=== PATIENT | female | born 1970 | race African-American/Black ===

== ENCOUNTER 2018-08-06 05:56 | Emergency (ER) | payer SELFPAY ==
[~2018-08-06] VITALS: Ht 157.5 cm; Wt 59.0 kg
[~2018-08-06 05:56] MED LIST: ACETAMINOPHEN-1 EAC1 ORAL; AMOXICILLIN500 MG ORAL; ANBESOL9 GM MM; BENADRYL25 MG ORAL; CHLORHEXIDINE473 ML MM; CLINDAMYCIN HC300 MG ORAL; CYCLOBENZAPRINE10 MG ORAL; HYDROCODON-ACE1 EA15 ORAL; NKM; NORCO 5-325 TA1 EACH ORAL; NORCO 7.5-3251 EACH ORAL; PERCOCET 5-3251 EACH ORAL; PREDNISONE20 MG ORAL; ROBAXIN500 MG PO
[2018-08-06] MEDS ORDERED: TYLENOL EXTRA500 MG ORAL (06:05)
--- NOTE | 2018-08-06 06:07 | NUR ---
ED Nurse Note: Received report. Pt from home, ambulatory, c/o flank and groin pain 04/19. Pt is scheduled to have kidney stone removal in [place] 08/11/18 but pain was so severe she came to ED today 08/06/18. monitoring manager applied, VSS and pt stable. Will carry out ERMD's orders and continue to monitor.
[2018-08-06 06:15] VITALS: BP 111/79
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
[2018-08-06] MEDS ORDERED: HYDROcodone/Acetamin 10/325 tab ORAL ONE (06:30)
[2018-08-06 06:40] VITALS: BP 109/81
== END 2018-08-06 06:40 | disposition home or self-care (01) ==
LOC: EDBD 05:56 → MERGE 06:35 → EMR 06:35
DX: M54.5 Low back pain (principal); Z87.442 Personal history of urinary calculi; Z88.5 Allergy status to narcotic agent; Z88.0 Allergy status to penicillin; Z88.8 Allergy status to other drugs, medicaments and biological substances
CPT/HCPCS: 99282

== ENCOUNTER 2019-03-19 23:40 | Emergency (ER) | payer OTHER ==
[~2019-03-19] VITALS: Ht 165.1 cm; Wt 68.5 kg
[~2019-03-19 23:40] MED LIST changes: +TYLENOL EXTRA500 MG ORAL
[2019-03-19 23:55] VITALS: BP 155/88
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
[2019-03-20] MEDS ORDERED: Fluorescein Strips ONE
[2019-03-20] MEDS ORDERED: Fluorescein Strips RIGHT EYE ONE
[2019-03-20] MEDS ORDERED: HYDROmorphone 1mg/ml Carpuject IM ONE (00:15)
[2019-03-20 00:30] VITALS: BP 142/80
[2019-03-20] MEDS ORDERED: DiphenhydrAMINE 50mg/ml Inj IM ONE (00:30)
[2019-03-20] MEDS ORDERED: HYDROCODON-ACE1 EA15 ORAL (00:43)
[2019-03-20] MEDS ORDERED: POLYTRIM OP SOL10 ML OPHTHALM (00:43)
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
== END 2019-03-20 00:30 | disposition home or self-care (01) ==
LOC: EMR 23:59
DX: S05.01XA Injury of conjunctiva and corneal abrasion without foreign body, right eye, initial encounter (principal); Z88.6 Allergy status to analgesic agent; Z88.8 Allergy status to other drugs, medicaments and biological substances; Z88.0 Allergy status to penicillin; G89.29 Other chronic pain; M54.9 Dorsalgia, unspecified; K08.89 Other specified disorders of teeth and supporting structures; V43.52XA Car driver injured in collision with other type car in traffic accident, initial encounter; Y92.410 Unspecified street and highway as the place of occurrence of the external cause
CPT/HCPCS: 96372; J1170; J1200; Z7502; 99283

== ENCOUNTER 2019-03-21 02:03 | Emergency (ER) | payer OTHER ==
[~2019-03-21] VITALS: Ht 165.1 cm; Wt 68.0 kg
[~2019-03-21 02:03] MED LIST changes: +POLYTRIM OP SOL10 ML OPHTHALM
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
[2019-03-21 02:16] VITALS: BP 187/121
[2019-03-21] MEDS ORDERED: Tetracaine 0.5% Opth 4ml Soln RIGHT EYE ONE (02:30)
[2019-03-21] MEDS ORDERED: Hydromorphone 0.5mg/0.5ml inj IM ONE (02:30)
[2019-03-21] MEDS ORDERED: DiphenhydrAMINE 50mg/ml Inj IM ONE (02:30)
[2019-03-21] MEDS ORDERED: Fluorescein Strips RIGHT EYE ONE (02:30)
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
[2019-03-21 02:48] VITALS: BP 155/101
--- NOTE | 2019-03-21 02:48 | NUR ---
ER DISCHARGE NOTE: Patient is cleared to be discharged per ERMD, pt is aox4, on room air, with stable vital signs. pt was given dc and prescription instructions, pt was able to verbalize understanding, pt id band removed. pt is able to ambulate with steady gait. pt took all belongings.
== END 2019-03-21 02:48 | disposition home or self-care (01) ==
LOC: EMR 02:23
DX: S05.01XD Injury of conjunctiva and corneal abrasion without foreign body, right eye, subsequent encounter (principal); Z88.6 Allergy status to analgesic agent; Z88.8 Allergy status to other drugs, medicaments and biological substances; Z88.0 Allergy status to penicillin; W22.8XXD Striking against or struck by other objects, subsequent encounter
CPT/HCPCS: 96372; J1170; J1200; Z7502; 99283

== ENCOUNTER 2019-03-30 16:52 | Emergency (ER) | payer OTHER ==
[~2019-03-30] VITALS: Ht 160 cm; Wt 63.5 kg
[2019-03-30 17:12] VITALS: BP 161/104
[2019-03-30] MEDS ORDERED: Tetracaine 0.5% Opth 4ml Soln LEFT EYE ONE (17:15)
[2019-03-30] MEDS ORDERED: Fluorescein Strips BOTH EYES ONE (17:15)
--- NOTE | 2019-03-30 17:19 | NUR ---
ED Nurse Note: ermd at bedside pt walked in from home c/o rt eye pain
[2019-03-30] MEDS ORDERED: ERYTHROMYCIN3.5 GM RIGHT EYE (17:24)
--- NOTE | 2019-03-30 17:24 | Emergency Room Report ---
History of Present Illness General Chief Complaint: Eye Problems Source: Patient Present Illness HPI 45-year-old female presents with corneal abrasion to the right eye, patient endorses sharp pain foreign body sensation x1 day patient no aggravating relieving factors, severity is mild, and symptoms are intermittent. Allergies: Coded Allergies: CODEINE (Verified Allergy, Unknown, 03/30/19) IBUPROFEN (Verified Allergy, Unknown, 08/07/18) KETOROLAC (Verified Allergy, Unknown, 08/07/18) PENICILLINS (Verified Allergy, Unknown, 08/07/18) Patient History Past Medical History: see triage record Reviewed Nursing Documentation: PMH: Agreed; PSxH: Agreed Nursing Documentation-PMH Past Medical History: No Stated History Review of Systems All Other Systems: negative except mentioned in HPI Physical Exam Vital Signs Date Time Temp Pulse Resp B/P (MAP) Pulse Ox O2 Delivery O2 Flow Rate FiO2 03/30/19 16:58 98.2 117 18 161/104 (123) 96 Room Air General Appearance: well appearing, no apparent distress Head: normocephalic, atraumatic Eyes: right eye fluoroscene uptake; bilateral eye PERRL, bilateral eye EOMI, bilateral eye visual acuity - 20/100 ENT: hearing grossly normal, normal voice Neck: full range of motion, supple Respiratory: no respiratory distress, speaking full sentences Neurologic: alert, normal gait Psychiatric: mood/affect normal Skin: no rash Medical Decision Making Diagnostic Impression: Primary Impression: Corneal abrasion Qualified Codes: S05.01XD - Injury of conjunctiva and corneal abrasion without foreign body, right eye, subsequent encounter ER Course 45-year-old female presents with recurrent corneal abrasion, requesting Dilaudid concern for pain seeking behavior patient's right eye is injected, same corneal abrasion as last time, patient followed up with ophthalmology who cleared her. Spoke with patient counseled her that Dilaudid is not an indication for her pain. Patient understands Patient states she will follow-up with ophthalmology, patient has no pain with eye movement no changes in vision, patient with an old corneal abrasion that is still healing. Last Vital Signs Date Time Temp Pulse Resp B/P (MAP) Pulse Ox O2 Delivery O2 Flow Rate FiO2 03/30/19 17:12 98.2 18 161/104 96 Room Air 03/30/19 16:58 117 Disposition: HOME, SELF-CARE Condition: Stable Scripts Erythromycin Base (ERYTHROMYCIN*) 3.5 Gm Oint...g. 1 APPLIC RIGHT EYE QID for 7 Days, #3.5 GM 0 Refills Prov: Jaime Rivera MD 03/30/19 Referrals: [facility] Patient Instructions: Corneal Abrasion, [id number] Additional Instructions: The patient was provided with discharge instructions, notified to follow-up with a primary care doctor and or specialist in the next 24-48 hours, and to return to the ED if they have worsening of their symptoms. Please note that this report is being documented using DRAGON technology. This can lead to erroneous entry secondary to incorrect interpretation by the dictating instrument. Jaime Rivera MD Mar 30, 2019 17:24
--- NOTE | 2019-03-30 17:24 | NUR ---
ED Nurse Note: visual aquity done ermd informed of results.
[2019-03-30] MEDS ORDERED: DiphenhydrAMINE 50mg/ml Inj IM ONE (17:30)
[2019-03-30] MEDS ORDERED: Hydromorphone 0.5mg/0.5ml inj IVP ONE (17:30)
[2019-03-30] MEDS ORDERED: Hydromorphone 0.5mg/0.5ml inj IM ONE (17:30)
[2019-03-30 17:50] VITALS: BP 148/90
--- NOTE | 2019-03-30 17:52 | NUR ---
ED Nurse Note: pt medicated no reactions noted .
--- NOTE | 2019-03-30 17:56 | NUR ---
ED Nurse Note: pt walking home with mother.
--- NOTE | 2019-03-30 17:56 | NUR ---
ED Nurse Note: Pt cleared by health care Provider for discharge. DC instructions/prescription was given and explained to pt and verbalized understanding of teachings. All medical deviecs such as ID band removed. Pt is AAO x4, ambulatory and left with all personal belongings.
== END 2019-03-30 17:57 | disposition home or self-care (01) ==
LOC: EMR 17:20
DX: S05.01XA Injury of conjunctiva and corneal abrasion without foreign body, right eye, initial encounter (principal); Z88.6 Allergy status to analgesic agent; Z88.0 Allergy status to penicillin; X58.XXXA Exposure to other specified factors, initial encounter; Y92.9 Unspecified place or not applicable
CPT/HCPCS: 96372; 96374; J1170; J1200; Z7502; 99284

== ENCOUNTER 2019-07-23 05:43 | Emergency (ER) | payer OTHER ==
[~2019-07-23] VITALS: Ht 157.5 cm; Wt 56.7 kg
[~2019-07-23 05:43] MED LIST changes: +ERYTHROMYCIN3.5 GM RIGHT EYE
[2019-07-23 06:00] VITALS: BP 148/98
--- NOTE | 2019-07-23 06:00 | NUR ---
ED Nurse Note: Pt walked into ED from home for c/o cough x 4 days. Pt is in no cardiac or respiratory distress. Pt is aaox4, ambulatory with steady gait. Will continue to monitor.
[2019-07-23] MEDS ORDERED: PROMETHAZINE-C118 M1 ORAL ×2 (06:13→06:14)
[2019-07-23] MEDS ORDERED: PREDNISONE20 MG ORAL (06:14)
[2019-07-23] MEDS ORDERED: ALBUTEROL SULF8.5 GM INH (06:14)
[2019-07-23] MEDS ORDERED: Albuterol ud Inhalation HHN ONE (06:15)
[2019-07-23] MEDS ORDERED: Acetaminophen 500mg (ES) tab ORAL ONE (06:15)
--- NOTE | 2019-07-23 06:15 | Emergency Room Report ---
History of Present Illness General Chief Complaint: Upper Respiratory Illness Source: Patient Present Illness HPI This is a 45-year-old female with history of chronic pain patient presents with complaint of cough and congestion. She says she went to the dentist 4 days ago. The print shop assistant was sick and she simply caught it from her. She has been coughing nonstop. [id number] medicine not helping. Also complained of headache and body pain. [place] chills but no fever. Worse with inspiration. Better with rest. Denies any other complaint. Is nonproductive in nature. Pain is 10/10. Allergies: Coded Allergies: CODEINE (Verified Allergy, Unknown, 03/30/19) IBUPROFEN (Verified Allergy, Unknown, 08/07/18) KETOROLAC (Verified Allergy, Unknown, 08/07/18) PENICILLINS (Verified Allergy, Unknown, 08/07/18) Patient History Past Medical History: see triage record, old chart reviewed Past Surgical History: other Pertinent Family History: none Social History: Denies: smoking Now: No Immunizations: other Reviewed Nursing Documentation: PMH: Agreed; PSxH: Agreed Nursing Documentation-PMH Past Medical History: No Stated History Review of Systems Constitutional: Reports: chills Eye: Denies: eye pain, blurred vision ENT: Denies: ear pain, nose congestion, throat swelling Respiratory: Reports: cough, shortness of breath Cardiovascular: Denies: chest pain, palpitations Gastrointestinal: Denies: abdominal pain, diarrhea, nausea, vomiting Musculoskeletal: Denies: back pain, joint pain Skin: Denies: rash Neurological: Denies: headache, numbness Endocrine: Denies: increased thirst, increased urine Hematologic/Lymphatic: Denies: easy bruising All Other Systems: negative except mentioned in HPI Physical Exam Vital Signs Date Time Temp Pulse Resp B/P (MAP) Pulse Ox O2 Delivery O2 Flow Rate FiO2 07/23/19 05:51 98.1 102 20 148/98 (115) 98 Room Air Vitals normal except for high blood pressure Sp02 EP Interpretation: reviewed, normal General Appearance: well appearing, no apparent distress, alert Head: normocephalic, atraumatic Eyes: bilateral eye PERRL, bilateral eye EOMI ENT: hearing grossly normal, normal pharynx Neck: full range of motion, supple, no meningismus Respiratory: chest non-tender, lungs clear, normal breath sounds, other - Coughing with inspiration Cardiovascular #1: regular rate, rhythm, no murmur Gastrointestinal: normal bowel sounds, non tender, no mass, no organomegaly, no bruit, non-distended Musculoskeletal: back normal, normal range of motion, gait/station normal Psychiatric: mood/affect normal Medical Decision Making Diagnostic Impression: Primary Impression: Bronchospasm with bronchitis, acute Additional Impression: Upper respiratory infection Qualified Codes: J06.9 - Acute upper respiratory infection, unspecified ER Course Presents upper respiratory infection with bronchospasm. No evidence of ACS, PE , dissection to name a few. Will discharge home with symptomatic treatment. Last Vital Signs Date Time Temp Pulse Resp B/P (MAP) Pulse Ox O2 Delivery O2 Flow Rate FiO2 07/23/19 05:51 98.1 102 20 148/98 (115) 98 Room Air Status: improved Disposition: HOME, SELF-CARE Condition: Stable Scripts Codeine/Promethazine Hcl* (PROMETHAZINE-CODEINE SYRUP*) 118 Ml Syrup 5 ML ORAL Q6H PRN for For Cough, #118 ML 0 Refills Prov: Kenroy Mccloud MD 07/23/19 Prednisone* (PREDNISONE*) 20 Mg Tablet 40 MG ORAL DAILY, #8 TAB Prov: Kenroy Mccloud MD 07/23/19 Albuterol Sulfate* (ALBUTEROL SULFATE MDI*) 8.5 Gm Hfa.aer.ad 2 PUFF INH Q4H PRN for cough/wheezing, #1 EA 0 Refills Prov: Kenroy Mccloud MD 07/23/19 Codeine/Promethazine Hcl* (PROMETHAZINE-CODEINE SYRUP*) 118 Ml Syrup 5 ML ORAL Q6H PRN for For Cough, #118 ML 0 Refills Prov: Kenroy Mccloud MD 07/23/19 Patient Instructions: Upper Respiratory Infection, Adult Additional Instructions: Increase fluids. Follow-up with your doctor in 7 days. Return if worse. Kenroy Mccloud MD Jul 23, 2019 06:14
[2019-07-23 07:10] VITALS: BP 148/98
== END 2019-07-23 07:10 | disposition home or self-care (01) ==
LOC: EMR 06:21
DX: J20.9 Acute bronchitis, unspecified (principal); J06.9 Acute upper respiratory infection, unspecified; Z88.6 Allergy status to analgesic agent; Z88.0 Allergy status to penicillin
CPT/HCPCS: J7512; Z7502; 99284